=== PATIENT | male | born 1980 ===

== ENCOUNTER 2023-07-12 11:16 | Emergency (ER) | payer SELFPAY ==
--- NOTE | 2023-07-12 11:41 | ED Abdominal Pain ---
General Chief Complaint: Abdominal/GI Problems Stated Complaint: ABD PAIN Source of Information: Patient Exam Limitations: No Limitations History of Present Illness Date Seen by Provider: Jul 12, 2023 Time Seen by Provider: 11:38 Initial Comments Patient is a 42-year-old male who is Bangl[place] who presents ED for abdominal pain. Abdominal pain started this past Sunday 2 days ago. Pain is located in left lower quadrant described as more discomfort intermittent without radiation. Reports few episodes of vomiting nonbilious without any diarrhea loose stools bloody or mucousy stools. Reports frequent urination without any pain. No history of previous abdominal surgery. Is been taken Tylenol and ibuprofen. Does report a mild cough but denies of any specific chest pain sore throat ear pain headache dizziness. Patient does not appear in acute distress. Not concern for sexual transmitted infections. Pain is not exacerbated with eating. Denies of any alcohol use or excessive NSAID use. Denies history of peptic ulcer disease, coronary artery disease, COPD, asthma, dark urine. Allergies and Home Medications Allergies Coded Allergies: No Known Drug Allergies (Unverified , 07/12/23) Patient Home Medication List Home Medication List Reviewed: Yes Naproxen (Naproxen) 500 Mg Tablet, 500 MG PO Q12H Prescribed by: ONEIDA CASAS on 07/12/23 1318 Ondansetron (Ondansetron Odt) 4 Mg Tab.rapdis, 4 MG SL Q4H PRN for NAUSEA/VOMITING Prescribed by: ONEIDA CASAS on 07/12/23 1343 Review of Systems Review of Systems Constitutional: No chills, No diaphoresis EENTM: No Double Vision, No Eye Pain Respiratory: Denies Orthopnea Cardiovascular: Denies Chest Pain, Denies Edema Gastrointestinal: Abdominal Pain; Denies Diarrhea; Nausea, Vomiting Genitourinary: Denies Burning, Denies Discharge, Denies Drainage; Frequency; Denies Flank Pain, Denies Hematuria Musculoskeletal: No back pain, No joint pain Skin: No change in color, No change in hair/nails Psychiatric/Neurological: Denies Anxiety, Denies Depressed All Other Systems Reviewed Negative Unless Noted: Yes Physical Exam Vital Signs Vital Signs - First Documented 07/12/23 11:30 Temp 36.6 Pulse 75 Resp 16 Pulse Ox 97 Capillary Refill : Height/Weight/BMI Height: '" Weight: lbs. oz. kg; BMI Method: General Appearance: WD/WN, no apparent distress HEENT: PERRL/EOMI, normal ENT inspection, TMs normal, pharynx normal Neck: non-tender, full range of motion, supple Respiratory: chest non-tender, lungs clear, normal breath sounds, no respiratory distress, no accessory muscle use Cardiovascular: regular rate, rhythm, no edema, no gallop, no JVD Gastrointestinal: normal bowel sounds, soft, no organomegaly, tenderness (Left lower quadrant tenderness. 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 tested, no motor/sensory deficits, alert, normal mood/affect, oriented x 3 Skin: normal color, warm/dry Progress/Results/Core Measures Results/Orders Lab Results Laboratory Tests Test 07/12/23 00:15 07/12/23 11:45 07/12/23 12:52 Range/Units SARS-CoV-2 RNA (RT-PCR) Not Detected Not Detecte White Blood Count 8.4 4.3-11.0 10^3/uL Red Blood Count 5.81 H 4.30-5.52 10^6/uL Hemoglobin 19.0 H 13.3-17.7 g/dL Hematocrit 53 40-54 % Mean Corpuscular Volume 91 80-99 fL Mean Corpuscular Hemoglobin 33 25-34 pg Mean Corpuscular Hemoglobin Concent 36 32-36 g/dL Red Cell Distribution Width 12.9 10.0-14.5 % Platelet Count 255 130-400 10^3/uL Mean Platelet Volume 9.1 9.0-12.2 fL Immature Granulocyte % (Auto) 1 % Neutrophils (%) (Auto) 52 42-75 % Lymphocytes (%) (Auto) 31 12-44 % Monocytes (%) (Auto) 6 0-12 % Eosinophils (%) (Auto) 10 0-10 % Basophils (%) (Auto) 1 0-10 % Neutrophils # (Auto) 4.4 1.8-7.8 10^3/uL Lymphocytes # (Auto) 2.6 1.0-4.0 10^3/uL Monocytes # (Auto) 0.5 0.0-1.0 10^3/uL Eosinophils # (Auto) 0.8 H 0.0-0.3 10^3/uL Basophils # (Auto) 0.1 0.0-0.1 10^3/uL Immature Granulocyte # (Auto) 0.0 0.0-0.1 10^3/uL Sodium Level 135 135-145 MMOL/L Potassium Level 4.5 3.6-5.0 MMOL/L Chloride Level 105 98-107 MMOL/L Carbon Dioxide Level 22 21-32 MMOL/L Anion Gap 7 5-14 MMOL/L Blood Urea Nitrogen 12 7-18 MG/DL Creatinine 0.92 0.60-1.30 MG/DL Estimat Glomerular Filtration Rate 108 BUN/Creatinine Ratio 13 Glucose Level 104 70-105 MG/DL Calcium Level 8.9 8.5-10.1 MG/DL Corrected Calcium 8.9 8.5-10.1 MG/DL Total Bilirubin 1.4 H 0.1-1.0 MG/DL Aspartate Amino Transf (AST/SGOT) 37 H 5-34 U/L Alanine Aminotransferase (ALT/SGPT) 49 0-55 U/L Alkaline Phosphatase 122 40-136 U/L Total Protein 9.1 H 6.4-8.2 GM/DL Albumin 4.0 3.2-4.5 GM/DL Lipase 22 8-78 U/L Urine Color YELLOW Urine Clarity CLEAR Urine pH 6.0 5-9 Urine Specific [place] 1.010 L 1.016-1.022 Urine Protein NEGATIVE NEGATIVE Urine Glucose (UA) NEGATIVE NEGATIVE Urine Ketones NEGATIVE NEGATIVE Urine Nitrite NEGATIVE NEGATIVE Urine Bilirubin NEGATIVE NEGATIVE Urine Urobilinogen 2.0 < = 1.0 MG/DL Urine Leukocyte Esterase NEGATIVE NEGATIVE Urine RBC (Auto) TRACE H NEGATIVE Urine RBC NONE /HPF Urine WBC NONE /HPF Urine Squamous Epithelial Cells NONE /HPF Urine Crystals NONE /LPF Urine Bacteria NEGATIVE /HPF Urine Casts NONE /LPF Urine Mucus NEGATIVE /LPF Urine Culture Indicated NO My Orders Orders - BELINDA FIGUEROA Cbc And Automated Diff (07/12/23 11:35) Comprehensive Metabolic Panel (07/12/23 11:35) Lipase (07/12/23 11:35) Urinalysis (07/12/23 11:35) Ct Abdomen/Pelvis W (07/12/23 11:35) Iohexol Injection (Omnipaque 350 Mg/Ml 1 (07/12/23 11:45) Received Contrast (Hold Metformin- Contr (07/12/23 11:45) Ns (Ivpb) 100 Ml (Sodium Chloride 0.9% 1 (07/12/23 11:45) Fentanyl Injection (Fentanyl Injection (07/12/23 11:55) Covid 19 Inhouse Test (07/12/23 13:19) Medications Given in ED Current Medications Medications Dose Ordered Sig/[place] Route Start Time Stop Time Status Last Admin Dose Admin Iohexol 100 ml ONCE ONCE IV 07/12/23 11:45 07/12/23 11:46 DC 07/12/23 12:02 80 ML Sodium Chloride 100 ml ONCE ONCE IV 07/12/23 11:45 07/12/23 11:46 DC 07/12/23 12:02 80 ML Vital Signs/I&O 07/12/23 11:30 Temp 36.6 Pulse 75 Resp 16 B/P (MAP) Pulse Ox 97 Departure Communication (PCP) Patient is a 42-year-old male who presents to the ED for abdominal pain. Abdominal pain started on Sunday. He reports nausea and vomiting without any diarrhea. Denies of any bloody stools. Reports a mild cough without shortness of breath or chest pain. No history of previous abdominal surgery. Patient is [place]. He Was able to speak some Occitan and understand communication. Did use security infrastructure engineer to help. Differential diagnosis colitis, diverticulitis, UTI, gastritis. Pain appears to be worse to the left lower quadrant on exam. Does report frequent urination. Urinalysis was negative for infection but did show trace red blood cells. CBC, CMP, lipase was ordered which were grossly unremarkable. Patient received a liter of fluid and IV fentanyl with improvement of pain. Patient does not want any nausea medication. CT abdomen and pelvis was ordered which did show severe hepatic steatosis without evidence of acute abnormality. Patient does not appear toxic or septic.. Discussed all results with patient. Does report a mild cough and he states this seems to cause the pain to become worse. Did add a COVID which was negative. No evidence suggesting surgical abdomen. Could be more muscular wall pain. At this time since his lab work was reassuring will discharge with strict return precautions. Will discharge with some Zofran. Suggest if any worsening symptoms to return back to ED. Other etiologies would be some form of gastroenteritis but suggest continue follow-up. Does not have any right upper q uadrant or epigastric tenderness on palpation. Pain is not exacerbated with eating. Impression Primary Impression: Abdominal pain Disposition: HOME, SELF-CARE Condition: Stable Departure-Patient Inst. Decision time for Depature: 13:17 Referrals: [facility] (PCP/Family) Primary Care Physician Patient Instructions: Abdominal Pain, Adult ED Scripts Ondansetron (Ondansetron Odt) 4 Mg Tab.rapdis 4 MG SL Q4H PRN for NAUSEA/VOMITING, #8 TAB Prov: BELINDA FIGUEROA 07/12/23 Naproxen (Naproxen) 500 Mg Tablet 500 MG PO Q12H, #14 TAB Prov: BELINDA FIGUEROA 07/12/23 Work/School Note: Work Release Form Date Seen in the Emergency Department: Jul 12, 2023 Return to Work: Jul 16, 2023 BELINDA FIGUEROA Jul 12, 2023 11:41
[2023-07-12] MEDS ORDERED: HOLD METFORMIN - RECEIVED CONTRAST 20 ML VIAL IV SCH (11:45)
[2023-07-12] MEDS ORDERED: NS 100 ML (IVPB) BAG IV ONE (11:45)
[2023-07-12] MEDS ORDERED: IOHEXOL 350 MG/ML 100 ML (OMNIPAQUE 350) VIAL IV ONE (11:45)
[2023-07-12 11:50] LABS: BASOPHILS # (AUTO) 0.1 10^3/uL (0.0-0.1); BASOPHILS % (AUTO) 1 % (0-10); EOSINOPHILS # (AUTO) 0.8 10^3/uL (0.0-0.3); EOSINOPHILS % (AUTO) 10 % (0-10); HEMATOCRIT 53 % (40-54); LYMPHOCYTES # (AUTO) 2.6 10^3/uL (1.0-4.0); LYMPHOCYTES % (AUTO) 31 % (12-44); MEAN CORPUSCULAR HEMOGLOBIN 33 pg (25-34); MEAN CORPUSCULAR HGB CONC 36 g/dL (32-36); MEAN CORPUSCULAR VOLUME 91 fL (80-99); MEAN PLATELET VOLUME 9.1 fL (9.0-12.2); MONOCYTES # (AUTO) 0.5 10^3/uL (0.0-1.0); MONOCYTES % (AUTO) 6 % (0-12); NEUTROPHILS # (AUTO) 4.4 10^3/uL (1.8-7.8); NEUTROPHILS % (AUTO) 52 % (42-75); PLATELET COUNT 255 10^3/uL (130-400); WHITE BLOOD COUNT 8.4 10^3/uL (4.3-11.0)
[2023-07-12] MEDS ORDERED: fentaNYL INJECTION 100 MCG/2 ML VIAL IVP STA (11:55)
[2023-07-12 12:02] LABS: POTASSIUM 4.5 MMOL/L (3.6-5.0)
[2023-07-12 12:03] LABS: CALCIUM 8.9 MG/DL (8.5-10.1)
[2023-07-12 12:04] LABS: TOTAL PROTEIN 9.1 GM/DL (6.4-8.2)
[2023-07-12 12:06] LABS: BILIRUBIN,TOTAL 1.4 MG/DL (0.1-1.0)
[2023-07-12 12:08] LABS: CREATININE SERUM 0.92 MG/DL (0.60-1.30)
--- NOTE | 2023-07-12 12:13 | Diagnostic Imaging Report ---
EXAMINATION: CT abdomen and pelvis with intravenous contrast. TECHNIQUE: Multiple contiguous axial images were obtained through the abdomen and pelvis after the uneventful administration of intravenous contrast. All CT scans use one or more of the following dose optimizing techniques: Automated exposure control, MA and/or KvP adjustment based on patient size and exam type or iterative reconstruction. HISTORY: Left lower quadrant pain. COMPARISON: None available. FINDINGS: Limited views of the lower thorax are unremarkable. Liver is severely steatotic. No suspicious liver lesion. There is no biliary ductal dilation. Gallbladder is normal. Pancreas is normal. Spleen is normal. Adrenal glands are normal. The kidneys are normal. There is no hydronephrosis. Urinary bladder is normal. Bowel is normal in caliber without obstruction or inflammation. There is diverticulosis without diverticulitis. No free fluid or air. No abdominal or pelvic lymphadenopathy. Aorta is normal in caliber without aneurysm. There are no suspicious osseous lesions. IMPRESSION: 1. Severe hepatic steatosis. Otherwise, no acute abnormality. Dictated by: Dictated on workstation # [id number]
[2023-07-12 13:06] LABS: CLARITY,URINE CLEAR; COLOR,URINE YELLOW; GLUCOSE, URINE (UA) NEGATIVE (NEGATIVE); PROTEIN,URINE NEGATIVE (NEGATIVE)
[2023-07-12 13:07] LABS: BACTERIA,URINE NEGATIVE /HPF; BILIRUBIN,URINE NEGATIVE (NEGATIVE); KETONES,URINE NEGATIVE (NEGATIVE); LEUKOCYTE ESTERASE ,URINE NEGATIVE (NEGATIVE); NITRITE,URINE NEGATIVE (NEGATIVE)
[2023-07-12] MEDS ORDERED: NAPR-915 PO (13:18)
[2023-07-12] MEDS ORDERED: ONDA4TAB11 SL (13:43)
[2023-07-12 14:01] VITALS: BP 113/80
== END 2023-07-12 14:02 | disposition home or self-care (01) ==
LOC: ER 11:20
DX: R10.32 Left lower quadrant pain (principal); R11.2 Nausea with vomiting, unspecified; R05.9 Cough, unspecified; Z20.822 Contact with and (suspected) exposure to COVID-19
CPT/HCPCS: 36415; 74177; 80053; 81000; 83690; 85025; 87636

== ENCOUNTER 2023-07-27 12:50 | Emergency (ER) | payer SELFPAY ==
[~2023-07-27] VITALS: Ht 162.6 cm; Wt 108.9 kg
[~2023-07-27 12:50] MED LIST: NAPR-915 PO; ONDA4TAB11 SL
[2023-07-27 13:24] LABS: BASOPHILS # (AUTO) 0.1 10^3/uL (0.0-0.1); BASOPHILS % (AUTO) 1 % (0-10); EOSINOPHILS # (AUTO) 0.6 10^3/uL (0.0-0.3); EOSINOPHILS % (AUTO) 6 % (0-10); HEMATOCRIT 53 % (40-54); HEMOGLOBIN 19.1 g/dL (13.3-17.7); LYMPHOCYTES % (AUTO) 19 % (12-44); MEAN CORPUSCULAR HEMOGLOBIN 33 pg (25-34); MEAN CORPUSCULAR HGB CONC 36 g/dL (32-36); MEAN CORPUSCULAR VOLUME 91 fL (80-99); MEAN PLATELET VOLUME 9.3 fL (9.0-12.2); MONOCYTES # (AUTO) 0.7 10^3/uL (0.0-1.0); MONOCYTES % (AUTO) 6 % (0-12); NEUTROPHILS # (AUTO) 7.1 10^3/uL (1.8-7.8); NEUTROPHILS % (AUTO) 67 % (42-75); PLATELET COUNT 246 10^3/uL (130-400); WHITE BLOOD COUNT 10.6 10^3/uL (4.3-11.0)
[2023-07-27] MEDS ORDERED: NS IV 1000 ML 1,000 ML IV ONE (13:30)
[2023-07-27 13:33] LABS: ALBUMIN 4.1 GM/DL (3.2-4.5); POTASSIUM 3.6 MMOL/L (3.6-5.0)
[2023-07-27 13:34] LABS: CALCIUM 8.9 MG/DL (8.5-10.1)
[2023-07-27 13:35] LABS: TOTAL PROTEIN 8.9 GM/DL (6.4-8.2)
[2023-07-27 13:37] LABS: BILIRUBIN,TOTAL 1.5 MG/DL (0.1-1.0)
[2023-07-27 13:39] LABS: CREATININE SERUM 1.05 MG/DL (0.60-1.30)
[2023-07-27] MEDS ORDERED: KETOROLAC INJ 30 MG/ML VIAL IVP STA (13:49)
[2023-07-27 13:54] LABS: BACTERIA,URINE TRACE /HPF; BILIRUBIN,URINE NEGATIVE (NEGATIVE); CLARITY,URINE SL CLOUDY; COLOR,URINE YELLOW; GLUCOSE, URINE (UA) NEGATIVE (NEGATIVE); KETONES,URINE NEGATIVE (NEGATIVE); LEUKOCYTE ESTERASE ,URINE NEGATIVE (NEGATIVE); NITRITE,URINE NEGATIVE (NEGATIVE); PH,URINE 6.5 (5-9); PROTEIN,URINE 1+ (NEGATIVE); RBC,URINE 0-2 /HPF; WBC,URINE 0-2 /HPF
--- NOTE | 2023-07-27 14:29 | Diagnostic Imaging Report ---
EXAMINATION: Chest 1 view HISTORY: Cough. COMPARISON: None available. FINDINGS: The lung volumes are normal. No focal consolidation is seen. No large pleural effusion or pneumothorax is seen. The cardiomediastinal silhouette is normal in size and contour. No acute osseous abnormality is seen. IMPRESSION: 1. No acute pleuroparenchymal process. Dictated by: Dictated on workstation # [id number]
[2023-07-27] MEDS ORDERED: FAMOTIDINE 20 MG TABLET PO STA (14:45)
[2023-07-27] MEDS ORDERED: NS IV 1000 ML 1,000 ML IV STA (14:45)
--- NOTE | 2023-07-27 14:53 | ED Abdominal Pain ---
General Chief Complaint: Abdominal/GI Problems Stated Complaint: ABD PAIN Nursing Triage Note: pt ambulatory to room. states his first language is martialese. pt states he is able to communicate "some" in romanian. pt has a friend on his phone during triage to assist with language barrier. pt states he has had a nonproductive cough and abdominal pain since last sunday. states he was seen here last week and was sent medicine to the pharmacy. states he was unable to obtain his scripts due to finances. pt states he has had regular urination and bowel movements. pt points to stomach "all over" when asked where pain is. pt unable to describe the pain any more. pt is a&ox4, speech normal on arrival. Source of Information: Patient Exam Limitations: Language Barrier History of Present Illness Date Seen by Provider: Jul 27, 2023 Time Seen by Provider: 13:19 Initial Comments Here with report of upper abdominal pain that is been going on for about a week. He does speak Spanish but does speak some Irish as well. Reports having a cough over the last week and then the upper abdominal pain. He was seen here 2 weeks ago for the same and had CT scan and labs. CT scan did not show any significant findings except for liver disease. Did show some concentration of hemoglobin on that visit. He was prescribed Naprosyn and ondansetron but was unable to pick them up due to cost. Reports the cough continues and is unsure about fever. Denies vomiting or diarrhea but does have some dry heaves. Denies blood in his stool, vomit or urine. Is unsure of sick contacts with COVID or flu. 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 He also is complaining of what sounds to be like bronchitis symptoms with cough and states that he is coughing until he almost vomits and this seems to be more the problem. He has had to use an inhaler in the past. Timing/Duration: 1 Week, Getting Worse Severity/Quality: Moderate, Aching Location: LUQ Modifying Factors: Improves With Analgesics Associated Symptoms: No Back Pain, No Chest Pain, No Fever/Chills; Nausea/Vomiting; No Shortness of Air, No Weakness Allergies and Home Medications Allergies Coded Allergies: No Known Drug Allergies (Unverified , 07/12/23) Patient Home Medication List Home Medication List Reviewed: Yes Azithromycin (Azithromycin) 250 Mg Tablet, 250 MG PO DAILY Prescribed by: TWYLA CADET on 07/27/23 1600 Naproxen (Naproxen) 500 Mg Tablet, 500 MG PO Q12H Prescribed by: ONEIDA CASAS on 07/12/23 1318 Ondansetron (Ondansetron Odt) 4 Mg Tab.rapdis, 4 MG SL Q4H PRN for N AUSEA/VOMITING Prescribed by: ONEIDA CASAS on 07/12/23 1343 Review of Systems Review of Systems Constitutional: see HPI; No chills, No fever EENTM: No Nose Congestion, No Throat Pain Respiratory: Cough, Wheezing Cardiovascular: Denies Chest Pain Gastrointestinal: Abdominal Pain, Nausea Genitourinary: No Symptoms Reported Musculoskeletal: muscle pain Skin: no symptoms reported Psychiatric/Neurological: No Symptoms Reported Past Kbtvjjs-Lbbgdi-Haqtzm Hx Patient Social History Tobacco Use?: Yes Smoking Status: Former Smoker Use of E-Cig and/or Vaping dev: No Substance use?: No Alcohol Use?: No Immunizations Up To Date Influenza Vaccine Up-to-Date: No; Not Current Past Medical History Surgery/Hospitalization HX: DENIES Surgeries: No Respiratory: No Cardiac: No Neurological: No Gastrointestinal: No Musculoskeletal: No Family Medical History Reviewed Nursing Family Hx Physical Exam Vital Signs Vital Signs - First Documented 07/27/23 07/27/23 13:00 15:24 Temp 36.7 Pulse 99 Resp 22 B/P (MAP) 117/100 (106) Pulse Ox 98 O2 Delivery Room Air O2 Flow Rate 0 Capillary Refill : Height/Weight/BMI Height: '" Weight: lbs. oz. kg; 41.00 BMI Method: General Appearance: WD/WN, no apparent distress HEENT: PERRL/EOMI, pharynx normal Neck: full range of motion, supple Respiratory: no respiratory distress, other (Few trace wheezes and coarse cough noted with deep breathing) Cardiovascular: regular rate, rhythm, no murmur Gastrointestinal: soft, tenderness (Mild left upper quadrant) Extremities: non-tender, normal inspection Back: normal inspection, no CVA tenderness, no vertebral tenderness Neurologic/Psychiatric: alert, oriented x 3 Skin: normal color, warm/dry Progress/Results/Core Measures Results/Orders Lab Results Laboratory Tests Test 07/27/23 13:16 11/3/23 13:36 Range/Units White Blood Count 10.6 4.3-11.0 10^3/uL Red Blood Count 5.83 H 4.30-5.52 10^6/uL Hemoglobin 19.1 H 13.3-17.7 g/dL Hematocrit 53 40-54 % Mean Corpuscular Volume 91 80-99 fL Mean Corpuscular Hemoglobin 33 25-34 pg Mean Corpuscular Hemoglobin Concent 36 32-36 g/dL Red Cell Distribution Width 12.6 10.0-14.5 % Platelet Count 246 130-400 10^3/uL Mean Platelet Volume 9.3 9.0-12.2 fL Immature Granulocyte % (Auto) 1 % Neutrophils (%) (Auto) 67 42-75 % Lymphocytes (%) (Auto) 19 12-44 % Monocytes (%) (Auto) 6 0-12 % Eosinophils (%) (Auto) 6 0-10 % Basophils (%) (Auto) 1 0-10 % Neutrophils # (Auto) 7.1 1.8-7.8 10^3/uL Lymphocytes # (Auto) 2.0 1.0-4.0 10^3/uL Monocytes # (Auto) 0.7 0.0-1.0 10^3/uL Eosinophils # (Auto) 0.6 H 0.0-0.3 10^3/uL Basophils # (Auto) 0.1 0.0-0.1 10^3/uL Immature Granulocyte # (Auto) 0.1 0.0-0.1 10^3/uL Sodium Level 137 135-145 MMOL/L Potassium Level 3.6 3.6-5.0 MMOL/L Chloride Level 107 98-107 MMOL/L Carbon Dioxide Level 22 21-32 MMOL/L Anion Gap 8 5-14 MMOL/L Blood Urea Nitrogen 11 7-18 MG/DL Creatinine 1.05 0.60-1.30 MG/DL Estimat Glomerular Filtration Rate 92 BUN/Creatinine Ratio 10 Glucose Level 139 H 70-105 MG/DL Calcium Level 8.9 8.5-10.1 MG/DL Corrected Calcium 8.8 8.5-10.1 MG/DL Total Bilirubin 1.5 H 0.1-1.0 MG/DL Aspartate Amino Transf (AST/SGOT) 26 5-34 U/L Alanine Aminotransferase (ALT/SGPT) 48 0-55 U/L Alkaline Phosphatase 121 40-136 U/L C-Reactive Protein High Sensitivity 0.57 H 0.00-0.50 MG/DL Total Protein 8.9 H 6.4-8.2 GM/DL Albumin 4.1 3.2-4.5 GM/DL Lipase 27 8-78 U/L Monoscreen NEGATIVE NEGATIVE Urine Color YELLOW Urine Clarity SL CLOUDY Urine pH 6.5 5-9 Urine Specific [place] 1.020 1.016-1.022 Urine Protein 1+ H NEGATIVE Urine Glucose (UA) NEGATIVE NEGATIVE Urine Ketones NEGATIVE NEGATIVE Urine Nitrite NEGATIVE NEGATIVE Urine Bilirubin NEGATIVE NEGATIVE Urine Urobilinogen 4.0 < = 1.0 MG/DL Urine Leukocyte Esterase NEGATIVE NEGATIVE Urine RBC (Auto) TRACE H NEGATIVE Urine RBC 0-2 /HPF Urine WBC 0-2 /HPF Urine Squamous Epithelial Cells 10-25 H /HPF Urine Crystals NONE /LPF Urine Bacteria TRACE /HPF Urine Casts NONE /LPF Urine Mucus NEGATIVE /LPF Urine Culture Indicated NO Influenza Type A (RT-PCR) Not Detected Not Detecte Influenza Type B (RT-PCR) Not Detected Not Detecte SARS-CoV-2 RNA (RT-PCR) Not Detected Not Detecte My Orders Orders - TWYLA CADET MD Cbc And Automated Diff (07/27/23 13:19) Comprehensive Metabolic Panel (07/27/23 13:19) Hs C Reactive Protein (07/27/23 13:19) Lipase (07/27/23 13:19) Ed Iv/Invasive Line Start (07/27/23 13:19) Ns Iv 1000 Ml (Ns Iv 1000 Ml) (07/27/23 13:30) Ua Culture If Indicated (07/27/23 13:34) Influenza A And B By Pcr (07/27/23 13:34) Chest 1 View, Ap/Pa Only (07/27/23 13:34) Covid 19 Inhouse Test (07/27/23 13:34) Ketorolac Injection (Ketorolac Injection (07/27/23 13:49) Famotidine Tablet (Famotidine Tablet) (07/27/23 14:45) Pantoprazole Injection (Pantoprazole Inj (07/28/23 09:00) Ns Iv 1000 Ml (Ns Iv 1000 Ml) (07/27/23 14:45) Pantoprazole Injection (Pantoprazole Inj (07/27/23 14:54) Monotest (07/27/23 15:04) Ipratropium/Albuterol Inh Soln (Ipratrop (07/27/23 15:15) Svn Small Volume Nebulizer (07/27/23 15:08) Bordetella Pertussis Clemencia (07/27/23 15:26) Rx-Albuterol Inhaler (Rx-Ventolin Hfa In (07/27/23 16:00) Azithromycin Tablet (Azithromycin Tabl (07/27/23 16:00) Dexamethasone Injection (Dexamethasone (07/27/23 16:00) Bordetella Pertussis Pcr (07/27/23 16:03) Notify House Sup - Reportable ONCE (07/27/23 16:03) Bordetella Pert Igg Immunoblot (07/27/23 16:42) Bordetella Pertussis Pcr (07/27/23 16:42) Medications Given in ED Current Medications Medications Dose Ordered Sig/[place] Route Start Time Stop Time Status Last Admin Dose Admin Albuterol/ Ipratropium 3 ml ONCE ONCE INH 07/27/23 15:15 07/27/23 15:16 DC 07/27/23 15:23 3 ML Azithromycin 500 mg ONCE ONCE PO 07/27/23 16:00 07/27/23 16:01 DC 07/27/23 16:14 500 MG Dexamethasone Sodium Phosphate 10 mg ONCE ONCE IV 07/27/23 16:00 07/27/23 16:01 DC 07/27/23 16:14 10 MG Sodium Chloride 1,000 ml @ 0 mls/hr Q0M ONCE IV 07/27/23 13:30 07/27/23 13:31 DC 07/27/23 13:32 999 MLS/HR Vital Signs/I&O 07/27/23 07/27/23 13:00 15:24 Temp 36.7 Pulse 99 Resp 22 B/P (MAP) 117/100 (106) Pulse Ox 98 100 O2 Delivery Room Air Room Air O2 Flow Rate 0 Blood Pressure Mean: 106 Progress Progress Note : Progress Note Seen and evaluated. I did review previous visit including labs and CT scan. We will get IV and check basic labs including CBC, CMP, CRP and lipase. Normal saline 1 L bolus and Toradol 15 mg IV ordered. We will check COVID and influenza test as well. Chest x-ray ordered due to persistent cough. Monitor patient. Differential diagnosis includes pneumonia, bronchitis, electrolyte abnormality, dehydration, pancreatitis. 1528: I have added Pepcid 20 mg p.o. and Protonix 40 mg IV for the abdominal discomfort as well although he is feeling a little better after Toradol. Once we are able to find the right dialect senior principal software engineer, we were able to talk with him more and he reports the coughing till near emesis. We did ask about vaccination and he is unsure if he has had Tdap since come to the [facility]. He has had influenza and COVID vaccination. We will evaluate for pertussis and patient to get DuoNeb. Monitor patient. I also added monotest. 1545: Labs reviewed and CBC shows normal white count with concentrated hemoglobin of 19.1 with normal platelets and without left shift. COVID and influenza are negative. CMP shows normal electrolytes with normal creatinine and slightly elevated glucose at 139. Total bilirubin is 1.5 which is slightly up from previous at 1.4. Otherwise LFTs are okay. CRP is slightly elevated at 0.57 and total protein is concentrated to 8.9. Lipase is negative. UA shows moderate squames with 0-2 whites and 0-2 reds and 1+ protein with negative ketones. Monoscreen is negative. Patient is better after DuoNeb. Chest x-ray was reviewed and shows no obvious infiltrate on my interpretation. I will initiate outpatient az ithromycin p.o. as well as prednisone p.o. and will verify ability to pick that up given his failure on the other prescriptions. We will make sure that he has a few days off to rehab and also to allow for pertussis test to come back. 1558: Patient will have some challenges with pharmacy so we will go ahead and give first dose of azithromycin now on continue that for 4 days and then also give Rx inhaler now as well as Decadron 10 mg IV now. Discharged home after with return precautions. Patient verbalized understanding instructions and agreement with plan. 1615: I have discussed the case with the pathologist call, Dr. Anthony, and we will go ahead and do a swab for pertussis as well as lab draw to ensure that we have an adequate sample to rule out pertussis and to ensure that we are following appropriate state guidelines. 1710: Ultimately I had to speak with the commercial real estate assistant, La York, who agreed with the need for pertussis evaluation. We will do this through our lab. We will send both antibody test and PCR test which should cover pertussis and parapertussis. This was rediscussed with the hospital pathologist. She agrees. We will initiate state reportable form. After, discharged home with return precautions. Patient verbalized understanding of instructions and agreement with plan. All instructions given via senior principal software engineer services and all questions answered via senior principal software engineer services. Patient understands the need to isolate. I have changed work note to allow for appropriate isolation. Diagnostic Imaging Diagonstic Imaging: Xray Plain Films/CT/US/NM/MRI: chest Comments [facility] [place], [place] NAME: DEE PARKER [facility] REC#: [id number] PT STATUS: REG ER : 1980 PHYSICIAN: TWYLA CADET MD ADMIT DATE: 07/27/23/ER Signed Date of Exam:07/27/23 CHEST 1 VIEW, AP/PA ONLY EXAMINATION: Chest 1 view HISTORY: Cough. COMPARISON: None available. FINDINGS: The lung volumes are normal. No focal consolidation is seen. No large pleural effusion or pneumothorax is seen. The cardiomediastinal silhouette is normal in size and contour. No acute osseous abnormality is seen. IMPRESSION: 1. No acute pleuroparenchymal process. Dictated by: Dictated on workstation # [id number] Dict: 07/27/23 1428 Trans: 07/27/23 1433 [facility] [id number] Interpreted by: MATTHEW REDDY DO Electronically signed by: MATTHEW REDDY DO 07/27/23 1433 Departure Impression Primary Impression: Bronchitis Disposition: 01 HOME, SELF-CARE Condition: Improved Departure-Patient Inst. Decision time for Depature: 16:02 Referrals: [facility] (PCP/Family) Primary Care Physician Patient Instructions: Bronchitis, Adult ED, Pertussis, Adult (DC) Add. Discharge Instructions: All discharge instructions reviewed with patient and/or family. Voiced understanding. Take medications as directed. Follow-up with your doctor for recheck and further evaluation. Return for worse pain, fever, vomiting, weakness, breathing problems or other concerns as needed. Use inhaler 2 puffs every 4 hours as needed for breathing problems. It is very important that you burr picker your antibiotics and start those tomorrow. You may use Tylenol and/or ibuprofen as needed for fever or pain. You need to isolate at home until cleared test results. You will be called early next week for test results. If these are positive, the health department will contact you for further isolation precautions and evaluation. Scripts Azithromycin (Azithromycin) 250 Mg Tablet 250 MG PO DAILY, #4 TAB 0 Refills Prov: TWYLA CADET MD 07/27/23 Work/School Note: Work Release Form Date Seen in the Emergency Department: Jul 26, 2023 Return to Work: Aug 01, 2023 Restrictions: No Restrictions Other Restrictions Listed Below: You will need to remain out of work until cleared based on testing. Restrictions: Results should be available by Sunday or Sunday of next week Jul 31 or TWYLA CADET MD Jul 27, 2023 14:53
[2023-07-27] MEDS ORDERED: PANTOPRAZOLE INJECTION 40 MG VIAL ONE (14:54)
[2023-07-27] MEDS ORDERED: RT-Ipratropium/Albuterol NEB 3 ML VIAL INH ONE (15:15)
[2023-07-27] MEDS ORDERED: AZITHROMYCIN 250 MG TABLET PO ONE (16:00)
[2023-07-27] MEDS ORDERED: RX-ALBUTEROL INHALER 8.5 GM HFA (PROAIR) IH STA (16:00)
[2023-07-27] MEDS ORDERED: dexAMETHasone INJ 10 MG/ML 1 ML VIAL IV ONE (16:00)
[2023-07-27] MEDS ORDERED: AZIT250T12 PO (16:00)
[2023-07-27 18:28] VITALS: BP 119/93
[2023-07-28] MEDS ORDERED: PANTOPRAZOLE INJECTION 40 MG VIAL IV SCH (09:00)
== END 2023-07-27 18:28 | disposition home or self-care (01) ==
LOC: EDUNIT# 12:50 → ER 12:51
DX: J40 Bronchitis, not specified as acute or chronic (principal); R10.12 Left upper quadrant pain; Z87.891 Personal history of nicotine dependence
CPT/HCPCS: 36415; 71045; 80053; 81000; 83690; 85025; 86141; 86308; 86615; 87636; 87798; 94640; 96361; 96374; 96375